=== PATIENT | female | born 1955 | race Caucasian/White ===

== ENCOUNTER 2022-04-30 09:47 | Outpatient (CLI) | payer MEDICARE, OTHER | END 2022-04-30 09:48 | disposition home or self-care (01) | LOC: CSHRAD 09:47 | PROVIDERS: ATTEND Family Medicine | DX: M54.50 Low back pain, unspecified (principal); M47.816 Spondylosis without myelopathy or radiculopathy, lumbar region; M43.16 Spondylolisthesis, lumbar region | CPT/HCPCS: 72100 ==

== ENCOUNTER 2024-10-26 13:28 | Emergency (ER) | payer MEDICARE, OTHER ==
[2024-10-26] MEDS ORDERED: Acetaminophen 325 MG TAB ONE (14:09)
== END 2024-10-26 16:50 | disposition home or self-care (01) ==
LOC: CSHERS 13:28
DX: M25.562 Pain in left knee (principal); M25.561 Pain in right knee; I10 Essential (primary) hypertension; E11.9 Type 2 diabetes mellitus without complications; E78.5 Hyperlipidemia, unspecified; I25.10 Atherosclerotic heart disease of native coronary artery without angina pectoris; W01.0XXA Fall on same level from slipping, tripping and stumbling without subsequent striking against object, initial encounter
CPT/HCPCS: 99284